=== PATIENT | female | born 1995 | race Caucasian/White ===

== ENCOUNTER → 2017-11-07 08:03 | Outpatient (CLI) | payer MEDICAID, SELFPAY ==
--- NOTE | 2017-11-07 08:05 | US_ITS ---
US OB transvaginal HISTORY: ITS.REASON: US OB TV -DATES ORDERING PHYSICIAN: Denis Miranda MD PATIENT AGE: 22 years COMPARISON: FINDINGS: An intrauterine gestational sac is present with a pole with a crown-rump length of 2.36 cm correlating to gestational age of 9w1d. heart tones are present with an FHR of 160 bpm's. Yolk sac is noted. The amnion and chorion have not yet fused. Adnexa: Unremarkable. IMPRESSION: Live intrauterine gestation at 9 weeks 1 days as described above. Estimated due date by ultrasound is 06/11/2018
== END ==
PROVIDERS: PCP Family Medicine; Visit Provider Nurse Practitioner Obstetrics & Gynecology
DX: O26.841 Uterine size-date discrepancy, first trimester (principal)
CPT/HCPCS: 76830

== ENCOUNTER → 2017-12-07 09:43 | Outpatient (CLI) | payer MEDICAID, SELFPAY ==
[2017-12-07 10:30] LABS: Basophils % 0.1 % (0.1-2.0); Eosinophils # 0.1 K/mm3 (0.0-0.4); Hematocrit 38.6 % (37.0-47.0); Hemoglobin 12.5 g/dL (12.2-16.2); Lymphocytes # 1.2 K/mm3 (0.7-4.5); Lymphocytes % 18.5 K/mm3 (10-50); Mean Corpuscular HGB Conc 32.3 g/dL (31.8-35.4); Mean Corpuscular Hemoglobin 26.9 pg (27.0-31.2); Mean Corpuscular Volume 83.4 fl (81-99); Mean Platelet Volume 7.9 fl (7.4-10.4); Monocytes # 0.3 K/mm3 (0.1-1.0); Monocytes % 5.1 % (1.7-9.3); Neutrophils % 75.3 % (37.0-80.0); Platelet Count 274 K/mm3 (142-424); Red Blood Count 4.63 M/mm3 (4.20-5.40); Red Cell Distribution Width 13.3 % (11.5-17.5); White Blood Count 6.7 K/mm3 (4.8-10.8)
[2017-12-08 08:28] LABS: HIV Screen 4th Generation wRfx Non Reactive (Non Reactive)
[2017-12-08 20:05] LABS: Rapid Plasma Reagin Ab Titer Non Reactive (NonRea<1:1)
[2017-12-08 20:06] LABS: Hepatitis B Surface Antigen Negative (Negative); Hepatitis C Antibody <0.1 s/co ratio (0.0-0.9); Rubella Antibodies, IgG 3.22 index (Immune >0.99)
== END ==
PROVIDERS: PCP Family Medicine; Visit Provider Nurse Practitioner Obstetrics & Gynecology
DX: Z34.90 Encounter for supervision of normal pregnancy, unspecified, unspecified trimester (principal)
CPT/HCPCS: 36415; 85025; 86592; 86703; 86762; 86850; 87340; 87380; G0432

== ENCOUNTER → 2018-01-30 13:10 | Outpatient (CLI) | payer MEDICAID, SELFPAY ==
--- NOTE | 2018-01-30 13:14 | US_ITS ---
US OB /maternal detail: INDICATION: ITS.REASON: US OB Complete ORDERING PHYSICIAN: Denis Miranda MD PATIENT AGE: 22 years TECHNIQUE: ultrasound transabdominal scanning. COMPARISON: No previous relevant studies. FINDINGS: Single viable intrauterine gestation. Breech position. Placenta: Posterior and fundal placenta grade 1. There is average amount fluid. The cervix appears satisfactory. Closed and measuring 3.5 cm in length. Complete survey performed and was unremarkable on the submitted images as in PACS. No discrete anomalies identified on survey imaging by technologist. Active fetus. Three-vessel cord with satisfactory umbilical cord insertion. 4- chamber heart noted. Survey of brain & ventricles unremarkable. Face and neck survey unremarkable. Diaphragm and chest views unremarkable. Abdomen: Both kidneys noted and unremarkable. Stomach noted and satisfactory. Spine: Survey of the spine satisfactory with no anomalies identified nor imaged. Both arms and legs noted. Amniotic Fluid: Adequate. Maternal adnexa: No significant findings. Measurements: Average ultrasound age 20w5d. Gestational Age 21w1d. Estimated due date by ultrasound age 1206/14/2018. Estimated weight 461 grams. BPD = 21w0d OFD = 21w5d HC = 20w4d AC = 21w0d FL = 20w0d Growth Percentile= 18% based on established due date of 06/11/2018 Heart Rate = 147 Cerebellum = 20w3d Humerus = 21w1d HC/AC is 1.15 (1.06-1.25). CI is 75% (70-86%). FL/BPD is 65%. FL/AC is 20 %(20-24%). IMPRESSION: There is a single live fetus in breech presentation at an average ultrasound age of 20 weeks and 5 days. heart and body motion noted. No anomalies apparent. Please see above for detail
== END ==
PROVIDERS: PCP Family Medicine; Visit Provider Nurse Practitioner Obstetrics & Gynecology
DX: Z36.0 Encounter for antenatal screening for chromosomal anomalies (principal)
CPT/HCPCS: 76811

== ENCOUNTER 2018-04-01 20:17 | Outpatient (CLI) | payer MEDICAID, SELFPAY ==
[2018-04-01 20:27] VITALS: BMI 31.4
[2018-04-01 20:33] LABS: Microscopic, Urine URINE MICROSCOPIC (MICROSCOPIC)
[2018-04-01 20:38] VITALS: BP 121/71; PULSE 95; RESP 18; TEMP 36.6; O2SAT 100
[2018-04-01 20:39] LABS: Appearance,Urine CLEAR (Clear); Bilirubin,Urine Negative (Negative); Blood, Urine Negative (Negative); Color,Urine YELLOW (Yellow); Glucose,Urine (UA) Negative (Negative); Ketones,Urine Negative (Negative); Leukocyte Esterase,Urine Negative (Negative); Nitrate,Urine Negative (Negative); Protein,Urine Negative (Negative); Specific Gravity, Urine <= 1.005 (1.005-1.030); Urobilinogen,Urine 0.2 EU/dl (0.2)
[2018-04-01 20:40] VITALS: BMI 31.4
== END 2018-04-01 21:11 | disposition home or self-care (01) ==
LOC: OBOUT 20:19 → OB 20:20
PROVIDERS: PCP Nurse Practitioner Obstetrics & Gynecology; Visit Provider Obstetrics & Gynecology
DX: O36.8130 Decreased fetal movements, third trimester, not applicable or unspecified (principal); Z3A.29 29 weeks gestation of pregnancy
CPT/HCPCS: 59025; 81001

== ENCOUNTER 2018-04-24 16:03 | Outpatient (CLI) | payer MEDICAID, SELFPAY ==
[2018-04-24 16:20] VITALS: BP 123/89; PULSE 101; RESP 18; TEMP 36.8; O2SAT 97
[2018-04-24 16:25] VITALS: BMI 31.6
[2018-04-24 16:51] VITALS: BP 123/89; PULSE 101; RESP 18; TEMP 36.8; O2SAT 97; BMI 31.6
[2018-04-24 16:58] LABS: Microscopic, Urine URINE MICROSCOPIC (MICROSCOPIC)
[2018-04-24 17:45] LABS: Fetal Fibronectin (Rapid) Negative (Negative)
[2018-04-24 17:51] LABS: Appearance,Urine SL CLOUDY (Clear); Bilirubin,Urine Negative (Negative); Blood, Urine Negative (Negative); Color,Urine YELLOW (Yellow); Glucose,Urine (UA) Negative (Negative); Ketones,Urine Negative (Negative); Leukocyte Esterase,Urine Negative (Negative); Nitrate,Urine Negative (Negative); PH,Urine 6.5 (5.0-8.5); Protein,Urine Negative (Negative); Specific Gravity, Urine 1.025 (1.005-1.030); Urobilinogen,Urine 0.2 EU/dl (0.2)
[2018-04-24 18:16] LABS: Bacteria,Urine Trace /lpf; Squamous Epithelial Cell,Urine Occasional #/hpf (0-5); WBC,Urine Occasional #/hpf (0-3)
[2018-04-24 18:30] VITALS: BP 123/83; PULSE 95; RESP 18; O2SAT 97
== END 2018-04-24 18:30 | disposition home or self-care (01) ==
LOC: OBOUT 16:08 → OB 16:09
PROVIDERS: PCP Family Medicine; Visit Provider Nurse Practitioner Obstetrics & Gynecology
DX: O26.893 Other specified pregnancy related conditions, third trimester (principal); Z3A.33 33 weeks gestation of pregnancy; R10.2 Pelvic and perineal pain
CPT/HCPCS: 59025; 81001; 82731; 94761

== ENCOUNTER → 2018-05-08 08:38 | Outpatient (CLI) | payer MEDICAID, SELFPAY ==
--- NOTE | 2018-05-08 08:39 | US_ITS ---
US OB biophysical profile, US OB follow up, US SD Ratio umbilcal artery: Indication: ITS.REASON: US OB BPP Growth- LGA ORDERING PHYSICIAN: Denis Miranda MD PATIENT AGE: 23 years COMPARISON: 01/30/2018 FINDINGS: There is a single live fetus present which is in the cephalic presentation. The sinus posterior lateral and grade 2. The following parameters are obtained: Average ultrasound age is 33w4d. Estimated due date by ultrasound is 06/22/2018. Estimated weight is 2207. This is 10%. BPD: 33w0d OFD: 35w0d HC: 33w5d AC: 33w1d FL: 34w3d heart rate: 143 bpm. HC/AC: 1.04 (0.93-1.11) Cephalic index: 75% (70-86%) FL/BPD: 81% (71-87%) FL/AC: 23% (20-24%) Amniotic fluid index: 11 cm Qualitative AFV: 2 breathing movements: 2 Gross body movements: 2 Tone: 2 Biophysical profile score: 8/8 Doppler evaluation of the umbilical artery: SD ratio: 3.8 Resistive index: 0.73 No obvious anomalies evident. Placenta: POST/LAT GR 2 Cervix: Appears closed and measures 3 cm IMPRESSION: There is a single fetus which is in cephalic presentation. Average ultrasound age is 33 weeks and 4 days with an estimated due date by ultrasound of 06/22/2018. Estimated weight is 2207 g which is 10 percentile indicating intrauterine growth restriction. Biophysical profile 8 of 8 with FLORECITA of 11 cm. SD ratio is greater than 95th percentile. Resistive index is slightly below 95th percentile. The placenta is posterior and right lateral and grade 2
== END ==
PROVIDERS: PCP Family Medicine; Visit Provider Nurse Practitioner Obstetrics & Gynecology
DX: O36.63X0 Maternal care for excessive fetal growth, third trimester, not applicable or unspecified (principal)
CPT/HCPCS: 76816; 76819; 76820

== ENCOUNTER → 2018-05-14 17:19 | Outpatient (CLI) | payer MEDICAID, SELFPAY | PROVIDERS: Visit Provider Nurse Practitioner Obstetrics & Gynecology | DX: Z34.90 Encounter for supervision of normal pregnancy, unspecified, unspecified trimester (principal) | CPT/HCPCS: 86403 ==

== ENCOUNTER 2018-05-21 05:07 | Inpatient (IN) ==
[2018-05-21 05:51] LABS: Basophils % 0.3 % (0.1-2.0); Eosinophils # 0.1 K/mm3 (0.0-0.4); Eosinophils % 1.7 % (0.1-12.0); Hematocrit 39.1 % (37.0-47.0); Hemoglobin 12.9 g/dL (12.2-16.2); Lymphocytes % 24.9 % (10-50); Mean Corpuscular HGB Conc 33.1 g/dL (31.8-35.4); Mean Corpuscular Hemoglobin 28.5 pg (27.0-31.2); Mean Corpuscular Volume 86.2 fl (81-99); Monocytes # 0.6 K/mm3 (0.1-1.0); Monocytes % 7.3 % (1.7-9.3); Neutrophils # 5.3 K/mm3 (1.8-7.8); Neutrophils % 65.9 % (37.0-80.0); Platelet Count 289 K/mm3 (142-424); Red Blood Count 4.54 M/mm3 (4.20-5.40); Red Cell Distribution Width 13.9 % (11.5-17.5); White Blood Count 8.1 K/mm3 (4.8-10.8)
[2018-05-21 07:59] VITALS: BP 144/77
--- NOTE | 2018-05-21 09:09 | Progress Note ---
Labor Note - Subjective: Date: 05/21/18 Time: 09:08 irregular contractions - Objective: NST:: Reactive Contractions:: every 4-5 minutes Cervical Dilation:: 2-3 Effacement:: 50% Station: -2 Membranes: artificially ruptured Comment:: I ruptured membranes and there was clear fluid. - Fetus: Monitoring?: Yes monitoring type:: Internal and External Comment:: I inserted an IUPC - Assessment: Labor progressing?: Yes Cephalopelvic disproportion?: No Patient Problems: All Active Problems Pharyngitis (Acute) IUGR (intrauterine growth restriction) (Acute) HGSIL on cytologic smear of cervix (Acute) (Acute) - Plan: Anesthesia for epidural?: Yes Continue to labor down?: Yes Plan for ?: No Continue to monitor?: Yes Start pushing?: No
--- NOTE | 2018-05-21 09:10 | History & Physical Report ---
OB - H&P: HPI Antepartum - History of Present Illness Chief complaint: Intrauterine growth restriction History of present illness: She is a 23-year-old 1 para 0 at 37 weeks gestational age. She has a baby that was 9th percentile. As result of that we have elected to deliver her at 37+ weeks. - History of Present Criteria for establishing EDC:: LMP confirmed by 1st trimester US care: good care Ultrasounds: normal 1st trimester US, normal mid trimester US Obstetrical complications: growth restriction Medical complications: none - Labs Blood type: B (+) positive Rubella: immune RPR/VDRL: nonreactive GBS status: positive HBsAG: negative [facility] History I have reviewed the patient's past medical history: Yes Medical History: Denies:: Anxiety, Depression, Diabetes Mellitus Type 1, Hyperlipidemia, Hypertension, Migraine, MRSA Other Surgeries: No: Amputation: No Fractures: No - *Social History Smoking Status: Never smoker Alcohol Intake: never Substance Use Type: denies use - Psychiatric History Pschychiatric History:: Denies:: Anxiety, Depression *Family Hx:: Diabetes, Cancer, Heart Attack, Stroke, Hypertension Para: 0 Review of Systems - Review of Systems Review of systems:: pertinent systems reviewed and negative unless documented below Meds Home Medications Medication Instructions Recorded Confirmed Type 1 tab PO HS 10/31/17 05/21/18 History vitamin,calcium,sayfjkbg-zgpx-ujrvh acid tablet RX: Ferrous Sulfate 325 mg PO DAILY 05/21/18 05/21/18 History RX: raNITIdine HCl [Ranitidine HCl] 150 mg PO BID 05/21/18 05/21/18 History Allergies Allergy/AdvReac Type Severity Reaction Status Date / Time No Known Allergies Allergy Verified 05/17/18 10:08 OB - H&P: Exam - Physical Exam Vital signs: Temp Pulse Resp BP 98.0 F 96 H 16 144/77 H 05/21/18 07:00 05/21/18 07:00 05/21/18 07:00 05/21/18 07:00 - Constitutional no acute distress - Routine HEENT Exam Head: Present: normocephalic Eye: Present: EOMI, PERRL ENT: Present: mucous membranes moist - Routine Neck Exam Present: supple, full ROM - Routine Respiratory Exam Absent: accessory muscle use (good air entry bilaterally), respiratory distress, wheezes, crackles - Routine Cardiovascular Exam Present: RRR. Absent: murmur - Routine Abdominal Exam Present: soft, normoactive bowel sounds. Absent: tenderness, distended, guarding - Routine Rectal Exam Patient deferred: visual exam, digital exam - Routine Exam Patient deferred: external exam, groin exam, perineal exam - Routine Extremities Exam Present: full ROM. Absent: cyanosis, edema - Routine Skin Exam Present: intact. Absent: cyanosis - Routine Neurological Exam Present: alert, oriented X3 - Routine Psychiatric Exam Present: normal affect OB - Results - Labs Labs: Short CBC 05/21/18 Range/Units 05:40 WBC 8.1 (4.8-10.8) K/mm3 Hgb 12.9 (12.2-16.2) g/dL Hct 39.1 (37.0-47.0) % Plt Count 289 (142-424) K/mm3 OB - A/P Antepartum (1) IUGR (intrauterine growth restriction) Current visit: No Status: Acute - Additional Plan Planning to breastfeed?: Yes Plan: induction Additional Information:: She is 37+ weeks gestational age with a small for gestational age . As a result of that we are delivering her at 37 weeks.
--- NOTE | 2018-05-21 11:19 | Progress Note ---
[facility] Anesthesia Checklist - Patient Identification Patient Identification: Arm Band, Verbal (Name & ) - Structural Data Admitted From: Home Planned Operative Procedure/s: Labor Epidural Consent for Planned Operative Procedure(s) Verified: Yes Verified Documents: Surgical Consent, History and Physical - Chart Verification Results Verified: CBC - Additional verifications Patient : Yes Anesthesia Reactions: No - Airway Assessment C-Spine Mobility Assessed: Yes TMJ Mobility Assessed: Yes Dentition: Good Dentition - Neurological Assessment Level of Consciousness: Awake Hx Seizures: No Numbness or tingling in extremities: No - Anesthesia Plan Anesthesia Risk discussed: Yes Anesthesia Plan: Verified ASA Class: II Anesthesia Type: Epidural [facility] History I have reviewed the patient's past medical history: Yes Medical History: Denies:: Anxiety, Depression, Diabetes Mellitus Type 1, Hyperlipidemia, Hypertension, Migraine, MRSA Other Surgeries: No: Amputation: No Fractures: No - *Social History Smoking Status: Never smoker Alcohol Intake: never Substance Use Type: denies use - Psychiatric History Pschychiatric History:: Denies:: Anxiety, Depression *Family Hx:: Diabetes, Cancer, Heart Attack, Stroke, Hypertension Para: 0
--- NOTE | 2018-05-21 11:44 | Progress Note ---
Labor Note - Subjective: Date: 05/21/18 Time: 11:43 regular contraction - Objective: NST:: Reactive Contractions:: every 2-3 minutes Cervical Dilation:: 3 Effacement:: 75% Station: -2 Membranes: artificially ruptured - Fetus: Monitoring?: Yes monitoring type:: Internal and External - Assessment: Labor progressing?: Yes Cephalopelvic disproportion?: No Patient Problems: All Active Problems Pharyngitis (Acute) IUGR (intrauterine growth restriction) (Acute) HGSIL on cytologic smear of cervix (Acute) (Acute) - Plan: Anesthesia for epidural?: Yes Continue to labor down?: Yes Plan for ?: No Continue to monitor?: Yes Start pushing?: No
--- NOTE | 2018-05-21 13:43 | Progress Note ---
Labor Note - Subjective: Date: 05/21/18 Time: 13:42 regular contraction - Objective: NST:: Reactive Contractions:: every 2-3 minutes Cervical Dilation:: 4 Effacement:: 75% Station: -2 Membranes: artificially ruptured - Fetus: Monitoring?: Yes monitoring type:: Internal and External - Assessment: Labor progressing?: Yes Cephalopelvic disproportion?: No Patient Problems: All Active Problems Pharyngitis (Acute) IUGR (intrauterine growth restriction) (Acute) HGSIL on cytologic smear of cervix (Acute) (Acute) - Plan: Anesthesia for epidural?: Yes Continue to labor down?: Yes Plan for ?: No Continue to monitor?: Yes Start pushing?: No
--- NOTE | 2018-05-21 16:19 | Progress Note ---
Labor Note - Subjective: Date: 05/21/18 Time: 16:18 regular contraction - Objective: NST:: Reactive Contractions:: every 2-3 minutes Cervical Dilation:: 4 Effacement:: 75% Station: -2 Membranes: artificially ruptured - Fetus: Monitoring?: Yes monitoring type:: Internal and External - Assessment: Labor progressing?: No Cephalopelvic disproportion?: No Patient Problems: All Active Problems Pharyngitis (Acute) IUGR (intrauterine growth restriction) (Acute) HGSIL on cytologic smear of cervix (Acute) (Acute) - Plan: Anesthesia for epidural?: Yes Continue to labor down?: Yes Plan for ?: Yes Continue to monitor?: Yes Start pushing?: No Additional information:: She really has not progressed in the last 2-1/2 hours. We will continue to observe her for the next couple of hours. If she does not change her cervix and we will go ahead with a section for pelvic disproportion and failure to progress.
--- NOTE | 2018-05-21 19:11 | Progress Note ---
Labor Note - Subjective: Date: 05/21/18 Time: 19:10 regular contraction - Objective: NST:: Reactive Contractions:: every 2-3 minutes Cervical Dilation:: 8 Effacement:: 100% Station: 0 Membranes: artificially ruptured - Fetus: Monitoring?: Yes monitoring type:: Internal and External - Assessment: Labor progressing?: Yes Cephalopelvic disproportion?: No Patient Problems: All Active Problems Pharyngitis (Acute) IUGR (intrauterine growth restriction) (Acute) HGSIL on cytologic smear of cervix (Acute) (Acute) - Plan: Anesthesia for epidural?: Yes Continue to labor down?: Yes Plan for ?: No Continue to monitor?: Yes Start pushing?: No Comment:: She has progressed significantly over the last few hours. She is 8 cm 100 percent effaced and station 0. We will continue on with labor
--- NOTE | 2018-05-21 20:36 | Procedure Note ---
- Delivery Note Delivery Date:: 05/21/18 Delivery Time:: 20:18 Anesthesia Type: Epidural Was labor medically induced?: Yes Induction method: per pitocin protocol Gestational age (weeks): 37 Infant delivered prior to 39 weeks?: Yes Justification for early elective delivery:: IUGR Infant Gender: Female at 1 minute: 8 at 5 minutes: 9 AF:: Clear fluid LAC or MLE?: LAC Delivery Procedure:: She is a 23-year-old 1 para 0 who is 37 weeks gestational age. She has been followed most over the last couple of weeks because she had a small for gestational age infant that measured at the 9th percentile. As result of that we elected to induce her labor at 37 weeks. She was started on IV oxytocin had her membranes ruptured. Under labor epidural she progressed to full dilation and delivered spontaneously a live born female child at 8:18 PM in the evening of May 21, 2018. On deliver the head the anterior godfrey delivered followed by the rest of the 's body atraumatically. The oropharynx and nasopharynx were bulb suctioned. The baby cried spontaneously. We allowed the cord to continue to pulsate for approximately 1 minute then doubly clamped and cut the cord. The baby was then placed on the mother's abdomen for further care. The nurse assigned Apgars of 8 at 1 minute and 9 at 5 minutes. We then obtained cord pH. There was not enough blood for cord blood. PH was 7.34. Using gentle traction on the cord countertraction the fundus I was able to easily deliver the placenta intact. It had a normal three-vessel cord. He had a small second degree perineal laceration was repaired with 3-0 Vicryl Rapide suture to the superficial tissues in 2-0 Vicryl suture to the deep tissues. She has B+ blood, she is rubella immune and was group B streptococcus positive. She did receive IV antibiotics while in labor. She plans to breast-feed. Her moth exterminator is Dr. Rodriguez. Estimated blood loss was approximately 400 cc. Laceration:: vaginal
[2018-05-22 06:11] LABS: Hematocrit 31.9 % (37.0-47.0); Hemoglobin 10.7 g/dL (12.2-16.2)
--- NOTE | 2018-05-22 08:23 | Progress Note ---
Internal Medicine - PN: Subj *Date: 05/22/18 *Time: 08:22 Interval history: She continues to do well. She is eating and drinking and ambulating. She is breast-feeding. Her lochia is normal. Exam Vital signs and Labs for Last 24 Hours: Temp Pulse Resp BP 98.0 F 96 H 16 144/77 H 05/21/18 07:00 05/21/18 07:00 05/21/18 07:00 05/21/18 07:00 Laboratory Results - last 24 hr 05/21/18 20:28: Cord ABG pH 7.34 L 05/22/18 05:57: Hgb 10.7 L, Hct 31.9 L I & O for Last 24 hours: Intake & Output 05/19/18 05/20/18 05/21/18 05/22/18 11:59 11:59 11:59 11:59 Weight 190 lb - Constitutional no acute distress Assessment and Plan (1) IUGR (intrauterine growth restriction) Current visit: No Status: Acute Category: Medical (2) Normal delivery at term Current visit: Yes Status: Acute Category: Medical Code(s): O80 - Encounter for full-term uncomplicated delivery - Assessment and plan all Dx Assessment and Plan for all problems:: She is doing well this morning. We will plan to send her home tomorrow.
--- NOTE | 2018-05-23 10:21 | Discharge Summary ---
General - General Admission date:: 05/21/18 Discharge date: 05/23/18 HPI HPI: She is a 23-year-old 1 now para 1 who is 37 weeks gestational age. She was followed with a small for gestational age and as a result of that was induced. Hospital Course Hospital Course: She was started on IV oxytocin and had her membranes ruptured. Under labor epidural she progressed to full dilation and delivered spontaneously a live born female child at 8:18 PM in the evening of May 21, 2018. The baby weighed 5 pounds 10 ounces and had Apgars of 8 at 1 minute and 9 at 5 minutes. PH was 7.34. She had a small second-degree perineal laceration. She has done well and has remained afebrile throughout her hospitalization. She is eating and drinking and ambulating. She is breast- feeding. She has, she is rubella immune and was group B streptococcus positive. She did receive IV antibiotic. She is discharged home to follow-up with me in approximately 2 weeks time. She will continue with her vitamins and iron. She was given the usual instructions with respect to limiting her activity, driving and sexual activity. Objective Vital signs: Temp Pulse Resp BP 98.0 F 96 H 16 144/77 H 05/21/18 07:00 05/21/18 07:00 05/21/18 07:00 05/21/18 07:00 no acute distress DS: Diagnosis - Discharge Diagnosis (1) IUGR (intrauterine growth restriction) Status: Acute (2) Normal delivery at term Status: Acute Discharge Plan - Patient Discharge Instructions ACTIVITY: No heavy lifting DIET: continue same diet Additional Instructions: No heavy lifting, no strenuous activity, nothing in the vagina for 6 weeks. Patient Instructions: Depression, Hemorrhage, Post Discharge Instructions - Follow up Plan Follow up with: Denis Miranda MD [Staff Physician] - 06/04/18 10:45 am Disposition: Home, Self-Custodial Medications: Home Medications Medication Instructions Recorded Confirmed Type 1 tab PO HS 10/31/17 05/21/18 History vitamin,calcium,dailnmhn-vyeq-tjwsv acid tablet Ferrous Sulfate 325 mg PO DAILY 05/21/18 05/21/18 History raNITIdine HCl [Ranitidine HCl] 150 mg PO BID 05/21/18 05/21/18 History Prescriptions/Medication Reconciliation: Continue vitamin,calcium,jwenifyc-gszo-ltgmt acid tablet 1 tab PO HS promethazine 12.5 mg tablet 12.5 mg PO Q6H PRN #14 tab PRN Reason: nausea and vomiting raNITIdine HCl [Ranitidine HCl] 150 mg PO BID Ferrous Sulfate 325 mg PO DAILY
== END 2018-05-23 11:55 | disposition home or self-care (01) ==
LOC: OB 05:07
PROVIDERS: ADMIT Nurse Practitioner Obstetrics & Gynecology; ATTEND Nurse Practitioner Obstetrics & Gynecology

== ENCOUNTER 2019-12-25 16:47 | Emergency (ER) | payer OTHER, SELFPAY ==
[2019-12-25 16:48] VITALS: BP 120/68; PULSE 93; RESP 18; TEMP 36.6; O2SAT 98; BMI 33.6
[2019-12-25 17:03] VITALS: BP 130/68; PULSE 95; RESP 17; O2SAT 98
--- NOTE | 2019-12-25 17:07 | CT_ITS ---
PROCEDURE: CT ABDOMEN PELVIS W CON CLINICAL INDICATION: abd pain Sharp mid abdominal pain COMPARISON: No exams were available for comparison TECHNIQUE: IV Contrast: 75ML OPTIRAY 350 Oral Contrast None Axial images obtained with sagittal and coronal reformats. All CT scans at the facility use one or more dose reduction, viz: automated exposure control, ma/kV adjustment per patient size (including targeted exams where dose is matched to indication, i.e. head), or iterative reconstruction technique. FINDINGS: LOWER THORAX: No acute finding ABDOMEN & PELVIS: The liver, spleen, pancreas, adrenal glands, and kidneys show no acute finding. No intestinal obstruction or free air. No evidence of appendicitis or diverticulitis. There is mild diffuse thickening of the mid and distal ileum with enhancement of the wall consistent with enteritis. Small amount fluid is present in the pelvis. No acute bony anomalies.. IMPRESSION: The findings are compatible with enteritis Dictated by: Mitchell Goyal MD 12/26/2019 08:51 Electronically signed by Mitchell Goyal MD in [place] 12/26/2019 08:51
[2019-12-25 17:11] LABS: Microscopic, Urine URINE MICROSCOPIC (MICROSCOPIC)
[2019-12-25 17:14] LABS: Appearance,Urine CLEAR (Clear); Bilirubin,Urine Negative (Negative); Blood, Urine Negative (Negative); Color,Urine YELLOW (Yellow); Glucose,Urine (UA) Negative (Negative); Ketones,Urine Negative (Negative); Leukocyte Esterase,Urine Negative (Negative); Nitrate,Urine Negative (Negative); Protein,Urine Negative (Negative); Specific Gravity, Urine >= 1.030 (1.005-1.030); Urobilinogen,Urine 0.2 EU/dl (0.2)
[2019-12-25 17:20] LABS: Basophils % 0.2 % (0.1-2.0); Eosinophils # 0.3 K/mm3 (0.0-0.4); Eosinophils % 1.6 % (0.1-12.0); Hematocrit 44.6 % (37.0-47.0); Hemoglobin 15.1 g/dL (12.2-16.2); Lymphocytes # 1.2 K/mm3 (0.7-4.5); Lymphocytes % 8.2 % (10-50); Mean Corpuscular Hemoglobin 27.1 pg (27.0-31.2); Mean Corpuscular Volume 79.9 fl (81-99); Mean Platelet Volume 8.1 fl (7.4-10.4); Monocytes # 0.6 K/mm3 (0.1-1.0); Monocytes % 4.2 % (1.7-9.3); Neutrophils % 85.7 % (37.0-80.0); Platelet Count 330 K/mm3 (142-424); Red Blood Count 5.58 M/mm3 (4.20-5.40); Red Cell Distribution Width 13.9 % (11.5-17.5); White Blood Count 15.1 K/mm3 (4.8-10.8)
[2019-12-25 17:23] LABS: Chloride 107 mmol/L (98-107); Sodium 137 mmol/L (136-145)
[2019-12-25 17:25] LABS: Amylase 66 U/L (30-110); Blood Urea Nitrogen 12 mg/dl (7-17); Creatinine Clearance Estimated 175 mL/min (50-200); Estimated Glomerular Filt Rate 104 ml/min (>60); GFR (African American) 125 ML/MIN (>60)
[2019-12-25 17:26] LABS: Alanine Aminotransferase 15 U/L (12-78); Albumin Level 4.5 g/dl (3.5-5.0); Albumin/Globulin Ratio 1.4 (1.1-1.8); Alkaline Phosphatase 119 U/L (38-126); Aspartate Amino Transferase 22 U/L (14-36); Bilirubin,Total 0.6 mg/dl (0.2-1.3); Calcium 9.3 mg/dl (8.4-10.2); Carbon Dioxide 25 mmol/L (22.0-30.0); Globulin 3.3 g/dL (1.3-3.2); Glucose 100 mg/dl (74-100); Lipase 47 U/L (23-300); Total Protein,Serum 7.8 g/dl (6.3-8.2)
[2019-12-25 17:41] LABS: Urine Pregnancy, HCG Qual. Negative (Negative)
[2019-12-25 17:44] LABS: Bacteria,Urine Trace /lpf; WBC,Urine Occasional #/hpf (0-3)
[2019-12-25 17:46] LABS: MANUAL DIFFERENTIAL MANUAL DIFFERENTIAL (MANUAL DIFF)
--- NOTE | 2019-12-25 18:49 | [facility].EDNVD ---
ED Disposition Clinical Impression: Abdominal pain Qualifiers: Abdominal location: upper abdomen, unspecified Qualified Code(s): R10.10 - Upper abdominal pain, unspecified Disposition: Home, Self-Care Condition on Discharge: Good Instructions: DI for Acute Abdomen Additional Instructions: fluids and call pcp in am for follow up and possible gb eval Referrals: Arturo Rodriguez MD [Primary Care Provider] - - Critical Care Critical Care Time: No Attestation: On 12/25/19, the high probability of a clinically significant, sudden or life threatening deterioration of the following system(s) required my full and direct attention, intervention and personal management. The time I documented below is in addition to time spent performing reported procedures but includes the following listed in this critical care notation. Medical Decision Making - Medical Records Medical records reviewed: Yes: I reviewed the patient's medical records. - Julio Inquiry Pt receiving controlled substance: No Vital Signs: 12/25/19 16:48 12/25/19 17:03 12/25/19 19:00 Temperature 98 F Temperature Source Oral Pulse Rate [Left Radial] 93 H 95 H 85 Respiratory Rate 18 17 17 Blood Pressure [Right Arm] 120/68 130/68 125/73 Blood Pressure Mean [Right Arm] 85 88 90 Blood Pressure Source [Right Arm] Automatic Cuff Automatic Cuff Blood Pressure Position [Right Arm] Sitting Supine Supine 02 Sat by Pulse Oximetry 98 98 98 Oxygen Delivery Method Room Air Room Air Room Air 12/25/19 19:30 12/25/19 20:00 Temperature Temperature Source Pulse Rate [Left Radial] 82 95 H Respiratory Rate 17 18 Blood Pressure [Right Arm] 130/74 128/78 Blood Pressure Mean [Right Arm] 92 94 Blood Pressure Source [Right Arm] Automatic Cuff Automatic Cuff Blood Pressure Position [Right Arm] Supine Supine 02 Sat by Pulse Oximetry 99 100 Oxygen Delivery Method Room Air Room Air - Lab Data Lab results reviewed: Yes: I reviewed the patient's lab results. Lab Results 12/25/19 17:00: Urine Color Yellow, Urine Appearance Clear, Urine pH 6.0, Ur Specific [place] >= 1.030, Urine Protein Negative, Urine Glucose (UA) Negative, Urine Ketones Negative, Urine Blood Negative, Urine Nitrate Negative, Urine Bilirubin Negative, Urine Urobilinogen 0.2, Ur Leukocyte Esterase Negative, Urine WBC Occasional, Ur Squamous Epith Cells 5-10, Urine Bacteria Trace 12/25/19 17:00: Urine HCG, Qual Negative 12/25/19 17:10: WBC 15.1 H, RBC 5.58 H, Hgb 15.1, Hct 44.6, MCV 79.9 L, MCH 27.1, MCHC 34.0, RDW 13.9, Plt Count 330, MPV 8.1, Neut % (Auto) 85.7 H, Lymph % (Auto) 8.2 L, Bland % (Auto) 4.2, Eos % (Auto) 1.6, Baso % (Auto) 0.2, Neut # (Auto) 13.0 H, Lymph # (Auto) 1.2, Bland # (Auto) 0.6, Eos # (Auto) 0.3, Baso # (Auto) 0.0, Total Counted 100, Neutrophils % (Manual) 84 H, Lymphocytes % (Manual) 9 L, Monocytes % (Manual) 3, Eosinophils % (Manual) 4 H, Platelet Estimate Normal, Anisocytosis 1+, Microcytosis 1+ 12/25/19 17:10: Sodium 137, Potassium 4.0, Chloride 107, Carbon Dioxide 25, Anion Gap 9.0, BUN 12, Creatinine 0.70, Estimated Creat Clear 175, Estimated GFR 104, Est GFR ( Amer) 125, Glucose 100, Calcium 9.3, Total Bilirubin 0.6, AST 22, ALT 15, Alkaline Phosphatase 119, Total Protein 7.8, Albumin 4.5, Globulin 3.3 H, Albumin/Globulin Ratio 1.4, Amylase 66, Lipase 47 Result diagrams: 12/25/19 17:10 12/25/19 17:10 Orders (Tests/Meds): ED MEDICATIONS Generic Name Dose Route Start Last Admin Trade Name Freq PRN Reason Stop Dose Admin Sodium Chloride 1,000 mls @ 999 mls/hr 12/25/19 17:15 12/25/19 17:19 Sod Chlor 0.9% 1000ml Bag IV 12/25/19 18:15 999 mls/hr .Q1H1M MG Administration Discontinued Medications Generic Name Dose Route Start Last Admin Trade Name Freq PRN Reason Stop Dose Admin Ioversol 75 ml 12/25/19 18:04 12/25/19 18:05 Rad-Optiray 350 100ml Vial IV 12/25/19 18:05 75 ml ONCE ONE Administration Protocol Morphine Sulfate 4 mg 0
[2019-12-25 19:00] VITALS: BP 125/73; PULSE 85; RESP 17; O2SAT 98
[2019-12-25 19:22] LABS: Anisocytosis 1+; Eosinophils % 4 % (0-3); Lymphocytes % 9 % (10-50); Microcytosis 1+; Monocytes % 3 % (2-9); Neutrophils % 84 % (42-76); Platelet Estimate Normal; Total Cells Counted 100
[2019-12-25 19:30] VITALS: BP 130/74; PULSE 82; RESP 17; O2SAT 99
[2019-12-25 20:00] VITALS: BP 128/78; PULSE 95; RESP 18; O2SAT 100
[2019-12-25 20:20] VITALS: BP 111/76; PULSE 77; RESP 16; TEMP 36.8; O2SAT 98
== END 2019-12-25 20:22 | disposition home or self-care (01) ==
PROVIDERS: Emergency Provider Emergency Medicine; PCP Family Medicine
DX: R10.10 Upper abdominal pain, unspecified (principal); R11.0 Nausea
CPT/HCPCS: 74177; 80053; 81001; 81025; 82150; 83690; 85007; 85025; 96365; 96375; 99284; J2405; Q9967

== ENCOUNTER → 2020-05-15 10:17 | Outpatient (CLI) | payer OTHER, SELFPAY ==
--- NOTE | 2020-05-15 10:20 | CT_ITS ---
PROCEDURE: CT ABDOMEN PELVIS W CON CLINICAL INDICATION: ABD PAIN, DIARRHEA COMPARISON: CT CT ABDOMEN PELVIS W CON from 12/25/2019 TECHNIQUE: IV Contrast: 75ML OPTIRAY 350 Oral Contrast none given Axial images obtained with sagittal and coronal reformats. All CT scans at the facility use one or more dose reduction, viz: automated exposure control, ma/kV adjustment per patient size (including targeted exams where dose is matched to indication, i.e. head), or iterative reconstruction technique. FINDINGS: Lower thorax: There is a calcified granuloma right middle lobe the lower lung ortiz are clear, there is no pleural fluid. ABDOMEN: Liver: No masses or biliary dilatation. Gallbladder: Nondistended. No radio opaque stones. Pancreas: No masses or peripancreatic fluid collections. Spleen: unremarkable Adrenals: unremarkable Kidneys/ureters: The kidneys are normal in size and show symmetrical function both appearing normal. ABDOMEN & PELVIS: Stomach bowel: The stomach duodenal sweep and small bowel appear normal. The appendix is normal. Peritoneum: No abnormal fluid collections. No obvious inflammatory changes. No free air. Lymph nodes: No enlarged lymph nodes apparent. Vasculature: No evidence of abdominal aortic aneurysm. No retroperitoneal hemorrhage evident. Bones: No acute fracture PELVIS: Reproductive: The uterus is normal in size and in the midline and somewhat anteverted. Bladder: The urinary bladder is moderately distended with urine appears normal, there is no free fluid in the pelvis. Appendix: Unremarkable. No distention or periappendiceal phlegmonous change. IMPRESSION: Essentially unremarkable study no acute abdominal or pelvic pathology identified Dictated by: Dr. Aaron Baird MD 05/15/2020 11:04 Dr. Aaron Baird MD in [place] 05/15/2020 11:04
== END ==
PROVIDERS: PCP Family Medicine; Visit Provider Nurse Practitioner
DX: R10.9 Unspecified abdominal pain (principal); R19.7 Diarrhea, unspecified
CPT/HCPCS: 74177; Q9967

== ENCOUNTER 2020-05-26 16:57 | Emergency (ER) | payer OTHER, SELFPAY ==
[2020-05-26 17:06] VITALS: BP 125/77; PULSE 77; RESP 16; TEMP 36.7; O2SAT 98; BMI 28.2
[2020-05-26 17:51] VITALS: BP 125/77; PULSE 77; RESP 16; TEMP 36.7; O2SAT 98; BMI 28.1
--- NOTE | 2020-05-26 18:00 | HMH.EDUTC ---
[facility] Disposition Clinical Impression: Conjunctivitis Qualifiers: Conjunctivitis type: unspecified Laterality: right Qualified Code(s): H10.9 - Unspecified conjunctivitis Disposition: Home, Self-Care Condition on Discharge: Good Instructions: Conjunctivitis, DI for Conjunctivitis, How to Instill Eye Drops Additional Instructions: Make sure to wash hands well before and after application *Use drops as prescribed *Follow up with [facility] if no improvement or any worsening of symptoms or your Eye doctor Return if needed Straight to ER if any life threatening symptoms Follow up with Family Doctor if no improvement or any worsening of symptoms Prescriptions: Niels/Polymyx B Sulf/Dexameth [Maxitrol Ophth Susp 5mL Bottle] 1 drops EYE-RIGHT QID 4 Days #1 drops.susp Transmission Status: Pending to [id number] Referrals: Arturo Rodriguez MD [Primary Care Provider] - As needed Dr Presley [Other] Time of Disposition: 18:18 Medical Decision Making - Julio Inquiry Pt receiving controlled substance: No Julio was queried for this patient: No Vital Signs: 05/26/20 17:06 05/26/20 17:51 Temperature 98.0 F 98.0 F Temperature Source Oral Oral Pulse Rate [Right] 77 77 Respiratory Rate 16 16 Blood Pressure [Right Arm] 125/77 125/77 Blood Pressure Mean [Right Arm] 93 93 Blood Pressure Source [Right Arm] Automatic Cuff Automatic Cuff Blood Pressure Position [Right Arm] Sitting Sitting 02 Sat by Pulse Oximetry 98 98 Oxygen Delivery Method Room Air Room Air [facility] HPI - General Stated complaint: swollen/irritated R eye Time Seen by Provider: 05/26/20 18:00 Mode of Arrival: Ambulatory Source of Information: Patient Limitations: No Limitations Description of Symptoms (Recalled from Triage Doc. by RN): Pt c/o eyes swelling and itchy HEENT Symptoms (Recalled from RN notes): Yes Resp Symptoms (Recalled from RN notes): No Skin Symptoms (Recalled from RN notes): No MS Symptoms (Recalled from RN notes): No Functional Status (Recalled from RN notes): wnl - History of Present Illness Provider Complaint: Patient states that she was at work last night and her eyes was itchy like feeling and she rubbed them State that when she woke up today her right eye was swollen and had drainage and felt swollen and irritated Denies known injury denies FB so she came in to get checked - Related Data Home Medications Medication Instructions Recorded Confirmed Norethindrone 0.35 mg PO DAILY 08/26/18 03/10/20 nitrofurantoin PO 03/10/20 03/10/20 monohydrate/macrocrystals 100 mg capsule Previous Rx's Medication Instructions Recorded Niels/Polymyx B Sulf/Dexameth 1 drops EYE-RIGHT QID 4 Days #1 05/26/20 [Maxitrol Ophth Susp 5mL Bottle] drops.susp Allergies Allergy/AdvReac Type Severity Reaction Status Date / Time No Known Allergies Allergy Verified 03/10/20 09:35 - Worker's Comp Is this a Worker's Comp case?: No [facility] [place] History - Hepatitis A Screen Drug use history?: No High risk sexual behaviors?: No History of sexually transmitted infection?: No Currently employed?: No Childcare worker?: No Do you have indoor plumbing?: Yes Do you have electricity?: Yes Attestation statement:: This patient has been screened for Hepatitis A risk factors. I have reviewed the patient's past medical history: Yes Medical History: Denies:: Anxiety, Cancer, Depression, Diabetes Mellitus Type 1, Diabetes Mellitus Type 2, Hyperlipidemia, Hypertension, Migraine, MRSA, Seizures Other Surgeries: Yes: No Previous Surgery. No: Amputation: No Fractures: No - Social History Smoking Status: Current some day smoker (Vaps) Alcohol Intake: never Substance Use Type: denies use Occupational Status: employed Housing: other Household Members: other - Psychiatric History Pschychiatric History:: Denies:: Anxiety, Depression Family Hx:: Diabetes, Cancer, Heart Attack, Stroke, Hypertension Comment: Mother Diabetic and G
[2020-05-26 18:30] VITALS: BP 125/77; PULSE 77; RESP 16; TEMP 36.7; O2SAT 98
== END 2020-05-26 18:32 | disposition home or self-care (01) ==
PROVIDERS: Emergency Provider Nurse Practitioner; PCP Family Medicine
DX: H10.31 Unspecified acute conjunctivitis, right eye (principal); F17.290 Nicotine dependence, other tobacco product, uncomplicated
CPT/HCPCS: 99201

== ENCOUNTER 2021-02-28 16:48 | Emergency (ER) | payer OTHER, SELFPAY ==
[2021-02-28 16:54] VITALS: PULSE 89; RESP 14; TEMP 36.9; O2SAT 100; BMI 32.1
[2021-02-28 17:13] VITALS: BP 122/79; PULSE 89; RESP 16; TEMP 36.9
--- NOTE | 2021-02-28 17:27 | HMH.EDUTC ---
[facility] Disposition Clinical Impression: Left otitis media, Exposure to COVID-19 virus Disposition: Home, Self-Care Condition on Discharge: Good Instructions: Preventing the Spread of Coronavirus Discharge Instructions Prescriptions: Amoxicillin [Amoxicillin 875MG Tab] 875 mg PO Q12H #20 tab Transmission Status: Pending to [facility] Brompheniramine/Pseudoephed/Dm [Bromfed DM Cough Syrup 5mL] 5 - 10 ml PO Q4HP PRN 10 Days #240 ml PRN Reason: Cough Transmission Status: Pending to [facility] Referrals: Arturo Rodriguez MD [Primary Care Provider] - Time of Disposition: 17:37 Medical Decision Making - Julio Inquiry Pt receiving controlled substance: No Vital Signs: 02/28/21 16:54 02/28/21 17:13 Temperature 98.4 F 98.4 F Temperature Source Oral Pulse Rate 89 Pulse Rate [Left] 89 Respiratory Rate 14 16 Blood Pressure 122/79 02 Sat by Pulse Oximetry 100 Orders (Tests/Meds): ORDERS Category Date Time Status Covid-19 Nasal PCR ([facility]) Routine Lab 02/28/21 15:10 Received [facility] HPI - General Stated complaint: covid test Time Seen by Provider: 02/28/21 17:27 Mode of Arrival: Ambulatory Source of Information: Patient Limitations: No Limitations Description of Symptoms (Recalled from Triage Doc. by RN): exposed to covid positive boss YESTERDAY. pt c/o DAVIDSON, sore throat and congestion HEENT Symptoms (Recalled from RN notes): Yes (DAVIDSON sore throat and congestion) Resp Symptoms (Recalled from RN notes): No Skin Symptoms (Recalled from RN notes): No MS Symptoms (Recalled from RN notes): No Functional Status (Recalled from RN notes): na - History of Present Illness Provider Complaint: Left ear pain, headache, sore throat, cough X 3 days. Found out today that odilia has COVID. Onset (ago): day(s) (3) Relieving factors: none Exacerbating factors: none Associated symptoms: denies other symptoms Treatments prior to arrival: none - Related Data Home Medications Medication Instructions Recorded Confirmed Norethindrone 0.35 mg PO DAILY 08/26/18 03/10/20 nitrofurantoin PO 03/10/20 03/10/20 monohydrate/macrocrystals 100 mg capsule Previous Rx's Medication Instructions Recorded Niels/Polymyx B Sulf/Dexameth 1 drops EYE-RIGHT QID 4 Days #1 05/26/20 [Maxitrol Ophth Susp 5mL Bottle] drops.susp Amoxicillin [Amoxicillin 875MG 875 mg PO Q12H #20 tab 02/28/21 Tab] Brompheniramine/Pseudoephed/Dm 5 - 10 ml PO Q4HP PRN 10 Days #240 02/28/21 [Bromfed DM Cough Syrup 5mL] ml Allergies Allergy/AdvReac Type Severity Reaction Status Date / Time No Known Allergies Allergy Verified 03/10/20 09:35 - Worker's Comp Is this a Worker's Comp case?: No [facility] History - Hepatitis A Screen Drug use history?: No High risk sexual behaviors?: No History of sexually transmitted infection?: No Currently employed?: No Childcare worker?: No Do you have indoor plumbing?: Yes Do you have electricity?: Yes Attestation statement:: This patient has been screened for Hepatitis A risk factors. I have reviewed the patient's past medical history: Yes Medical History: Denies:: Anxiety, Cancer, Depression, Diabetes Mellitus Type 1, Diabetes Mellitus Type 2, Hyperlipidemia, Hypertension, Migraine, MRSA, Seizures Other Surgeries: Yes: No Previous Surgery. No: Amputation: No Fractures: No - Social History Smoking Status: Current some day smoker (Vaps) Alcohol Intake: never Substance Use Type: denies use Occupational Status: employed Housing: other Household Members: other - Psychiatric History Pschychiatric History:: Denies:: Anxiety, Depression Family Hx:: Diabetes, Cancer, Heart Attack, Stroke, Hypertension Comment: Mother Diabetic and Grandmother SLOT TECHNICIAN history: No SLOT TECHNICIAN history ROS Obtained: Yes All systems reviewed & no additional complaints - ENT Ears, Nose, Mouth, and Throat: Reports otalgia, Reports nasal congestion, Reports nasal discharge, Reports sore th
== END 2021-02-28 18:17 | disposition home or self-care (01) ==
PROVIDERS: Emergency Provider Physician Assistant; PCP Family Medicine
DX: H66.92 Otitis media, unspecified, left ear (principal); Z20.822 Contact with and (suspected) exposure to COVID-19; F41.8 Other specified anxiety disorders; F17.290 Nicotine dependence, other tobacco product, uncomplicated
CPT/HCPCS: 99202; C9803; G0463; U0003; U0005

== ENCOUNTER 2021-04-07 09:57 | Emergency (ER) | payer OTHER, SELFPAY ==
[2021-04-07 09:58] VITALS: BP 132/83; PULSE 82; RESP 16; TEMP 36.6; O2SAT 98; BMI 34.3
--- NOTE | 2021-04-07 10:51 | US_ITS ---
PROCEDURE: US OB <= 14 WEEKS FETUS CLINICAL INDICATION: bloody BM, concern for vaginal bleeding/preg compl COMPARISON: US OBBIO US OB biophysical profile from 05/08/2018 FINDINGS: An intrauterine gestational sac is present with a pole with a crown-rump length of 3.45cm correlating to gestational age of 10weeks 3days. heart tones are not identified. Small left corpus luteum cyst at 17 mm. IMPRESSION: Nonviable intrauterine gestation. Dictated by: Mitchell Goyal MD 04/07/2021 12:21 Mitchell Goyal MD in [place] 04/07/2021 12:21
[2021-04-07 11:15] VITALS: BP 132/70; PULSE 70; RESP 16; O2SAT 99
[2021-04-07 11:21] LABS: Basophils % 0.3 % (0.1-2.0); Eosinophils # 0.2 K/mm3 (0.0-0.4); Eosinophils % 2.2 % (0.1-12.0); Hematocrit 42.2 % (37.0-47.0); Hemoglobin 13.7 g/dL (12.2-16.2); Lymphocytes # 1.8 K/mm3 (0.7-4.5); Lymphocytes % 27.6 % (10-50); Mean Corpuscular HGB Conc 32.4 g/dL (31.8-35.4); Mean Corpuscular Hemoglobin 27.5 pg (27.0-31.2); Mean Corpuscular Volume 85.1 fl (81-99); Mean Platelet Volume 7.8 fl (7.4-10.4); Monocytes # 0.3 K/mm3 (0.1-1.0); Monocytes % 5.2 % (1.7-9.3); Neutrophils # 4.2 K/mm3 (1.8-7.8); Neutrophils % 64.6 % (37.0-80.0); Platelet Count 292 K/mm3 (142-424); Red Blood Count 4.96 M/mm3 (4.20-5.40); Red Cell Distribution Width 13.3 % (11.5-17.5); White Blood Count 6.5 K/mm3 (4.8-10.8)
[2021-04-07 11:31] LABS: Chloride 107 mmol/L (98-107)
[2021-04-07 11:32] LABS: Potassium 3.8 mmoL/L (3.5-5.1); Sodium 138 mmol/L (136-145)
[2021-04-07 11:34] LABS: Alanine Aminotransferase 20 U/L (12-78); Aspartate Amino Transferase 23 U/L (14-36); Blood Urea Nitrogen 5 mg/dl (7-17); Creatinine Clearance Estimated 246 mL/min (50-200); Estimated Glomerular Filt Rate 150 ml/min (>60); GFR (African American) 182 ML/MIN (>60)
[2021-04-07 11:35] LABS: Albumin Level 3.7 g/dl (3.5-5.0); Albumin/Globulin Ratio 1.1 (1.1-1.8); Alkaline Phosphatase 94 U/L (38-126); Anion Gap 12.8 mEq/L (5-15); Calcium 8.9 mg/dl (8.4-10.2); Carbon Dioxide 22 mmol/L (22.0-30.0); Globulin 3.4 g/dL (1.3-3.2); Glucose 94 mg/dl (74-100); Total Protein,Serum 7.1 g/dl (6.3-8.2)
[2021-04-07 11:36] LABS: Bilirubin,Total < 0.1 mg/dl (0.2-1.3)
[2021-04-07 12:11] LABS: Microscopic, Urine URINE MICROSCOPIC (MICROSCOPIC)
[2021-04-07 12:17] LABS: Appearance,Urine CLEAR (Clear); Bilirubin,Urine Negative (Negative); Blood, Urine Negative (Negative); Color,Urine YELLOW (Yellow); Glucose,Urine (UA) Negative (Negative); Ketones,Urine Negative (Negative); Leukocyte Esterase,Urine Negative (Negative); Nitrate,Urine Negative (Negative); Protein,Urine Negative (Negative); Urobilinogen,Urine 0.2 EU/dl (0.2)
--- NOTE | 2021-04-07 12:55 | HMH.EDGENADL ---
ED Disposition Clinical Impression: Miscarriage Disposition: Home, Self-Care Condition on Discharge: Good Additional Instructions: You were evaluated emergency department today for constipation as well as blood associated with bowel movement, and there is no need for further emergent evaluation at this time. Use MiraLAX as directed. Follow-up as directed with your netbackup administrator Dr. Ballard in the next 1 to 2 days for monitoring of any persistent symptoms and coordination of ongoing care needs. As you likely are experiencing miscarriage. Return to the emergency department without hesitation with any new or worsening symptoms. Referrals: Arturo Rodriguez MD [Primary Care Provider] - Celio Miranda [Referring] - Denis Miranda MD [Staff Physician] - 3 days (Miscarriage, follow-up in 1 to 2 days for reevaluation and coordination of ongoing care needs.) - Critical Care Critical Care Time: No Attestation: On 04/07/21, the high probability of a clinically significant, sudden or life threatening deterioration of the following system(s) required my full and direct attention, intervention and personal management. The time I documented below is in addition to time spent performing reported procedures but includes the following listed in this critical care notation. Medical Decision Making - Julio Inquiry Pt receiving controlled substance: No - Lab Data Lab Results 04/07/21 11:05: WBC 6.5, RBC 4.96, Hgb 13.7, Hct 42.2, MCV 85.1, MCH 27.5, MCHC 32.4, RDW 13.3, Plt Count 292, MPV 7.8, Neut % (Auto) 64.6, Lymph % (Auto) 27.6, Day % (Auto) 5.2, Eos % (Auto) 2.2, Baso % (Auto) 0.3, Neut # (Auto) 4.2, Lymph # (Auto) 1.8, Day # (Auto) 0.3, Eos # (Auto) 0.2, Baso # (Auto) 0.0 04/07/21 11:05: Sodium 138, Potassium 3.8, Chloride 107, Carbon Dioxide 22, Anion Gap 12.8, BUN 5 L, Creatinine 0.50 L, Estimated Creat Clear 246, Estimated GFR 150, Est GFR ( Amer) 182, Glucose 94, Calcium 8.9, Total Bilirubin < 0.1 L, AST 23, ALT 20, Alkaline Phosphatase 94, Total Protein 7.1, Albumin 3.7, Globulin 3.4 H, Albumin/Globulin Ratio 1.1 04/07/21 11:05: HCG, Quant [id number] H 04/07/21 12:08: Urine Color Yellow, Urine Appearance Clear, Urine pH 6.0, Ur Specific Hawthorn 1.020, Urine Protein Negative, Urine Glucose (UA) Negative, Urine Ketones Negative, Urine Blood Negative, Urine Nitrate Negative, Urine Bilirubin Negative, Urine Urobilinogen 0.2, Ur Leukocyte Esterase Negative, Urine RBC 3-5, Ur Squamous Epith Cells 3-5 Result diagrams: 04/07/21 11:05 04/07/21 11:05 Orders (Tests/Meds): ORDERS Category Date Time Status ABO/RH Type Stat BBK 04/07/21 12:25 Received Medical Decision Narrative: Patient is a 26-year-old female presenting for evaluation of constipation and bloody bowel movement, 11 weeks . She is in no acute distress, afebrile and hemodynamically stable, nontoxic in appearance. Physical exam demonstrates comfortable appearing female without abdominal tenderness, normal cardiopulmonary exam, soft nontender abdomen, normal external genitourinary exam with remainder physical exam within normal notes. Differential diagnosis includes but is not limited to internal hemorrhoid, lower GI bleed, vaginal bleeding, miscarriage. Will obtain basic laboratory analysis, transvaginal ultrasound and reassess clinically. Reassessment: Patient continues to be in no acute distress and hemodynamically stable. Laboratory analysis unremarkable, transvaginal ultrasound demonstrates intrauterine tissue without heart tones consistent with miscarriage. Care of the patient was discussed with her netbackup administrator. Plan to discharge the patient with follow-up in the next 1 to 2 days at their office for recheck and coordination of ongoing care needs. Patient communicated their understanding of discharge plan, all her questions were answered, and she is comfortable with the disposition. General Adult HPI - General Stated complaint: 11 weeks pr
--- NOTE | 2021-04-07 13:02 | PC.NURSE ---
Attempting to contact Dr. Miranda at this time.
--- NOTE | 2021-04-07 13:02 | PC.NURSE ---
Pt boyfriend at the bedside.
--- NOTE | 2021-04-07 13:24 | PC.NURSE ---
spoke with Dr. Miranda who advised he wanted to take the pt to the OR to complete a D/C. Called and spoke with Dia. She advised she would send someone down to bring pt to pre-op. LEON Morales and stephen Pittmanub tech came and took pt to pre-op at this time.
[2021-04-07 13:49] VITALS: BP 128/74; PULSE 74; RESP 16; TEMP 36.8; O2SAT 98
--- NOTE | 2021-04-07 14:08 | SUR.PREOP ---
Procedure cancelled for today per agreement with patient and Dr Miranda. Pt to follow up with Dr Miranda's office in the morning.
== END 2021-04-07 13:54 | disposition still patient (30) ==
PROVIDERS: Nurse Practitioner Obstetrics & Gynecology; Emergency Provider Student in an Organized Health Care Education/Training Program; PCP Family Medicine
DX: O03.9 Complete or unspecified spontaneous abortion without complication (principal); Z3A.11 11 weeks gestation of pregnancy
CPT/HCPCS: 36415; 76801; 80053; 81001; 84702; 85025; 86900; 86901; 99284

== ENCOUNTER → 2021-04-07 13:34 | Day surgery (SDC) | payer OTHER, SELFPAY | PROVIDERS: PCP Nurse Practitioner Obstetrics & Gynecology; Visit Provider Nurse Practitioner Obstetrics & Gynecology | DX: Z53.09 Procedure and treatment not carried out because of other contraindication (principal) ==

== ENCOUNTER → 2021-07-05 13:01 | Outpatient (CLI) | payer OTHER, SELFPAY | PROVIDERS: PCP Family Medicine; Visit Provider Nurse Practitioner | DX: Z20.822 Contact with and (suspected) exposure to COVID-19 (principal) | CPT/HCPCS: C9803; U0003; U0005 ==

== ENCOUNTER 2022-05-23 17:18 | Emergency (ER) | payer OTHER, SELFPAY ==
--- NOTE | 2022-05-23 18:38 | PC.NURSE ---
contacted registration to room pt in ER, registration staff states pt went upstairs to OB to pump states pt hasn't come back down yet. Asked registration to notify ER when pt is back so we can room pt.
[2022-05-23 18:40] VITALS: BP 126/78; PULSE 96; RESP 16; TEMP 36.7; O2SAT 96; BMI 37.8
--- NOTE | 2022-05-23 19:37 | PC.NURSE ---
shift change report given to deepthirn
--- NOTE | 2022-05-23 19:45 | PC.NURSE ---
notified ER pt is r/t pt is ordered lovenox, brusher operator paging patient relations representative ob to discuss treatment options
[2022-05-23 20:05] VITALS: BP 119/81; PULSE 89; RESP 16; TEMP 36.7; O2SAT 96
--- NOTE | 2022-05-29 14:48 | HMH.EDEXTP ---
Discharge Plan Disposition Patient Disposition: Home, Self-Care Condition: Good Prescriptions Prescriptions: No Action PNV cmb#95-ferrous fumarate-FA 1 EACH tablet 1 each PO DAILY omeprazole 20 MG tablet,disintegrat, delay rel 20 mg PO DAILY famotidine 20 MG tablet 20 mg PO DAILY Referrals Follow up/Referrals: Fang Hartmann MD [Primary Care Provider] - See instructions Activity Restrictions/Add. Instructions Additional Instructions/Restrictions: Please come back to emergency department first thing tomorrow morning to have your US performed. You have been given Lovenox one time dose tonight in ED. If your US is positive you may require being on Lovenox longer term. Please return if difficulty breathing, chest pain or any other concerns. . Clinical Impressions Clinical Impression: Limb swelling Instructions Patient Instructions: DI for Deep Vein Thrombosis Discharge ED Provider: Elizabeth Yo Extremity Problem HPI General Chief complaint: Extremity Problem,Nontraumatic Stated complaint: 05/17 , right leg swelling Time Seen by Provider: 05/23/22 17:20 Mode of Arrival: Ambulatory Source of Information: Patient Limitations: No Limitations Description of Symptoms (Recalled from ER Triage Doc. by RN): Pt reports R leg swelling, pt reports has had leighton swelling since having her child on 05/17. States woke up this morning with increased R leg swelling. Pt reports L leg now not swollen upon waking up this morning. Pt reports called her facing grinder today who told pt to come to the ER for evaluation. History of Present Illness HPI Narrative: Miss Centeno is a 27 yo female post 05/17 presenting to the ED for (R) leg swelling. Patient reports bilateral leg swelling since delivering her child, however she woke yesterday morning with increased (R) leg swelling and pain. Patient reports she did recently injure her (R) leg a week ago while working out at the gym. She denies any chest pain, dyspnea or other concerns. Patient denies hx of blood clots. No blood thinners. Denies any eyrthema. No fevers, N/V or other systemic signs of infection. Complaint: extremity pain and extremity swelling Onset (ago): day(s) Consistency: constant Location: right Severity scale (1-10): 3 Quality: aching Radiation: none Relieving factors: nothing Exacerbating factors: nothing Associated symptoms: denies other symptoms Related Data Home Medications Medication Instructions Recorded Confirmed famotidine 20 mg tablet 20 mg PO DAILY GERD 04/07/21 omeprazole 20 mg delayed 20 mg PO DAILY GERD 04/07/21 04/07/21 release,disintegrating tablet vit no.95-ferrous 1 each PO DAILY Supplement 04/07/21 04/07/21 fumarate 28 mg-folic acid 800 mcg tablet Allergies Allergy/AdvReac Type Severity Reaction Status Date / Time No Known Allergies Allergy Verified 03/10/20 09:35 [facility] Disclaimer: The information contained in this section may have been updated after the patient was seen, as this information can be updated by other users. Social History Smoking Status: Never smoker alcohol intake: never substance use type: denies use current occupational status: employed Travel in the last 8 weeks: None household members: other housing: other ROS Obtained: Yes All systems reviewed & no additional complaints except as documented Physical Exam General General appearance: alert and in no apparent distress Head Head exam: atraumatic and normal inspection Eye Eye exam: Present normal appearance and EOMI ENT ENT exam: Present normal exam and normal oropharynx Neck Neck exam: Present normal inspection and full ROM Chest Chest inspection: Present normal inspection and symmetric chest wall rise Respiratory Respiratory exam: Present normal lung sounds bilaterally Cardiovascular Cardiovascular exam: Present regular rate and normal heart s
== END 2022-05-23 20:07 | disposition home or self-care (01) ==
PROVIDERS: Emergency Provider Student in an Organized Health Care Education/Training Program; PCP Family Medicine
DX: O90.89 Other complications of the puerperium, not elsewhere classified (principal); M79.89 Other specified soft tissue disorders
CPT/HCPCS: 96372; 99283

== ENCOUNTER 2023-05-22 22:07 | Emergency (ER) | payer OTHER, SELFPAY ==
[2023-05-22 22:07] VITALS: BP 121/89; PULSE 114; RESP 16; TEMP 36.6; O2SAT 99; BMI 38.9
[2023-05-22 22:55] LABS: Influenza A, PCR Not Detected (NotDetected); Influenza B, PCR Not Detected (NotDetected)
--- NOTE | 2023-05-22 23:01 | HMH.EDGENADL ---
Discharge Plan Disposition Patient Disposition: Home, Self-Care Prescriptions Prescriptions: No Action amoxicillin-pot clavulanate [Augmentin XR] 1,000-62.5 mg tablet extended release 12 hr 1 tab PO BID Qty: 14 0RF levonorgestrel-ethinyl estrad [Aviane] 0.1-20 mg-mcg tablet 1 tab PO TID 7 Days Qty: 84 3RF Rx Instructions: Take three times a day for 7 days followed by daily thereafter ondansetron 4 mg tablet,disintegrating 4 mg PO Q6H PRN (Reason: nausea and vomiting) Qty: 30 0RF Referrals Follow up/Referrals: Fang Hartmann MD [Primary Care Provider] - See instructions Activity Restrictions/Add. Instructions Additional Instructions/Restrictions: Supportive care treating symptoms as discussed. Return with any respiratory distress or other concerns. Clinical Impressions Clinical Impression: URI (upper respiratory infection) Stand Alone Forms Stand Alone Forms: Work/School Release Discharge ED Provider: Theo Dickinson General Adult HPI General Chief complaint: Upper Respiratory Infection Stated complaint: exposed to covid-cough, sore throat Time Seen by Provider: 05/22/23 22:25 Mode of Arrival: Ambulatory Source of Information: Patient Limitations: No Limitations Description of Symptoms (Recalled from ER Triage Doc. by RN): Presents to ED with c/o sore throat and cough since this morning. 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 Patient reports she was exposed to COVID yesterday. 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 She was exposed to a family member with COVID-19 recently and is concerned about that. She only complains of sore throat notes significant symptoms. Children have rhinorrhea cough and her youngest has a fever. Related Data Previous Rx's Medication Instructions Recorded amoxicillin-potassium clavulanate 1 tab PO BID #14 tabs 01/18/23 1,000 mg-62.5 mg tablet,ext.rel 12hr (Augmentin XR) levonorgestrel-ethinyl estradiol 1 tab PO TID 7 days #84 tabs 04/07/23 0.1 mg-20 mcg tablet (Aviane) ondansetron 4 mg disintegrating 4 mg PO Q6H PRN nausea and 04/07/23 tablet vomiting #30 tabs Allergies Allergy/AdvReac Type Severity Reaction Status Date / Time No Known Allergies Allergy Verified 01/18/23 14:37 [facility] Disclaimer: The information contained in this section may have been updated after the patient was seen, as this information can be updated by other users. Surgical History History of D&C Family History Mother Diabetes Father Hypertension Social History Smoking Status: Current every day smoker tobacco type: e-cigarettes alcohol intake: never substance use type: denies use current occupational status: employed Travel in the last 8 weeks: None household members: other housing: other ROS Obtained: Yes All systems reviewed & no additional complaints except as documented Physical Exam General General appearance: alert ENT ENT exam: Present normal oropharynx (No exudates ulcers no significant or pathologic erythema soft tissue swelling etc.) Respiratory Respiratory exam: Present normal lung sounds bilaterally; Absent respiratory distress, wheezes or stridor Cardiovascular Cardiovascular exam: Present regular rate; Absent tachycardia Neurological Exam Neurological exam: Present alert and oriented X3 Medical Decision Making Julio Inquiry Pt receiving controlled substance: No Vital Signs: 05/22/23 22:07 05/22/23 23:02 Temperature 97.9 F 97.9 F Temperature Source Oral Oral Pulse Rate 114 H Pulse Rate [Right] 114 H Respiratory Rate 16 16 Blood Pressure 121/89 Blood Pressure [Right
[2023-05-22 23:02] VITALS: BP 121/89; PULSE 114; RESP 16; TEMP 36.6; O2SAT 99
[2023-05-22 23:17] LABS: Coronavirus 19, PCR Detected (NotDetected)
== END 2023-05-22 23:10 | disposition home or self-care (01) ==
PROVIDERS: Emergency Provider Student in an Organized Health Care Education/Training Program; PCP Family Medicine
DX: J06.9 Acute upper respiratory infection, unspecified (principal); R05.9 Cough, unspecified; J02.9 Acute pharyngitis, unspecified; F17.290 Nicotine dependence, other tobacco product, uncomplicated
CPT/HCPCS: 87636; 99283

== ENCOUNTER 2023-10-24 11:26 | Outpatient (CLI) | payer OTHER, SELFPAY ==
[2023-10-24 12:13] LABS: Basophils # 0.1 K/mm3 (0-0.2); Basophils % 0.8 % (0.1-2.0); Eosinophils # 0.1 K/mm3 (0.0-0.4); Eosinophils % 1.6 % (0.1-12.0); Hematocrit 44.2 % (37.0-47.0); Hemoglobin 14.3 g/dL (12.2-16.2); Lymphocytes # 1.7 K/mm3 (0.7-4.5); Lymphocytes % 21.7 % (10-50); Mean Corpuscular HGB Conc 32.4 g/dL (31.8-35.4); Mean Corpuscular Hemoglobin 26.6 pg (27.0-31.2); Mean Platelet Volume 9.1 fl (7.4-10.4); Monocytes # 0.4 K/mm3 (0.1-1.0); Monocytes % 4.6 % (1.7-9.3); Neutrophils # 5.6 K/mm3 (1.8-7.8); Neutrophils % 71.4 % (37.0-80.0); Platelet Count 282 K/mm3 (142-424); Red Blood Count 5.39 M/mm3 (4.20-5.40); White Blood Count 7.9 K/mm3 (4.8-10.8)
[2023-10-24 12:38] LABS: Chloride 106 mmol/L (98-107)
[2023-10-24 12:39] LABS: Sodium 137 mmol/L (136-145)
[2023-10-24 12:41] LABS: Alanine Aminotransferase 18 U/L (12-78); Aspartate Amino Transferase 33 U/L (14-36); Blood Urea Nitrogen 16 mg/dl (7-17); Estimated Glomerular Filt Rate 120 ml/min (>60); GFR (African American) 145 ML/MIN (>60)
[2023-10-24 12:42] LABS: Albumin Level 4.1 g/dl (3.5-5.0); Albumin/Globulin Ratio 1.4 (1.1-1.8); Alkaline Phosphatase 102 U/L (38-126); Bilirubin,Total 0.7 mg/dl (0.2-1.3); Calcium 9.2 mg/dl (8.4-10.2); Carbon Dioxide 24 mmol/L (22.0-30.0); Globulin 2.9 g/dL (1.3-3.2); Glucose 101 mg/dl (74-100)
[2023-10-24 13:02] LABS: HCG,Quantitative < 2 mIU/ml (0-5.42)
== END 2023-10-24 23:59 | disposition home or self-care (01) ==
LOC: LAB 11:28
PROVIDERS: PCP Nurse Practitioner Family; Visit Provider Nurse Practitioner Obstetrics & Gynecology
DX: Z30.09 Encounter for other general counseling and advice on contraception (principal)
CPT/HCPCS: 36415; 80053; 84702; 85025

== ENCOUNTER 2023-10-30 06:07 | Day surgery (SDC) | payer OTHER, SELFPAY ==
[2023-10-30] VITALS (11 sets, daily range): BP systolic 107–152; BP diastolic 70–93; PULSE 71–100; RESP 14–18; TEMP 36.3–43; O2SAT 92–98; BMI 38.7
[2023-10-30] MEDS: LACTATED RINGERS 1000ML 1,000 ML 25 ML IV (06:34)
--- NOTE | 2023-10-30 06:55 | EXP.ANES.CKL ---
[facility] Disclaimer: The information contained in this section may have been updated after the patient was seen, as this information can be updated by other users. Medical History Abnormal cervical Papanicolaou smear Surgical History History of D&C Family History Mother Diabetes Father Hypertension Social History (Updated 10/30/23 @ 06:22 by Obdulia Delong RN) Smoking Status: Current every day smoker tobacco type: e-cigarettes alcohol intake: never substance use type: denies use current occupational status: employed Travel in the last 8 weeks: None household members: other housing: other [facility] Anesthesia Checklist Patient Identification Patient Identification: Arm Band and Family Structural Data Admitted From: Home Planned Operative Procedure/s: Bilateral Salpingectomy Consent for Planned Operative Procedure(s) Verified: Yes Verified Documents: Surgical Consent NPO Status Verified Time NPO: 00:00 Additional verifications Patient : No Anesthesia Reactions: No Hx Blood Transfusions: No Blood Transfusion Reaction: No Cephalosporin Allergy: No Previous Colonoscopy: No Airway Assessment Mallampati Score:: Class I C-Spine Mobility Assessed: Yes TMJ Mobility Assessed: Yes Dentition: Good Dentition Neurological Assessment Level of Consciousness: Awake, Alert, Appropriate and Follows Commands Numbness or tingling in extremities: No Anesthesia Plan ASA Class: I Anesthesia Type: General
[2023-10-30] MEDS: CEFAZOLIN 2GM VIAL 2 GM (07:43)
[2023-10-30] MEDS: ROPIVACAINE 0.5% 30ML VIAL 300 MG (07:43)
--- NOTE | 2023-10-30 08:07 | EXP.OP.NOTE ---
Date of procedure: 10/30/23 Pre-op Diagnosis:: Desire for sterilization Post-op Diagnosis:: Desire for sterilization Procedure performed:: Laparoscopic bilateral salpingectomy the Surgeon:: Denis Miranda MD [employer]ELOPER:: [place] Anesthesia: GETA Estimated blood loss (mL): 10 Clinical Note:: She is a 28-year-old lady who expressed desire for sterilization. The risks and benefits as well as the irreversibility of bilateral salpingectomy were discussed with the patient prior to surgery. Operative findings:: She had a normal-appearing somewhat bulky uterus. The tubes were seen and appeared normal. The ovaries were seen and appeared normal. The appendix was visualized and appeared normal. The upper abdomen appeared normal as did the entire pelvis. Operative note:: She was taken to the operating room where general anesthesia was found be adequate. She was prepped and draped in normal sterile fashion in the semilithotomy position. A weighted speculum was placed in the vagina and the anterior lip of the cervix was grasped with a tenaculum. I then inserted a Kerri uterine manipulator into the cervical os. The balloon was then insufflated. I changed gloves and injected 10 cc of 0.5% ropivacaine around her umbilicus and made a small incision within the umbilicus. I inserted a Veress needle into the abdominal cavity. The peritoneal cavity was then insufflated with carbon dioxide gas to a pressure of 20 mmHg. I then inserted a 5 millimeter trocar under direct vision. I injected through and through the pubic hairline, made a small incision here and inserted an 8 mm trocar under direct vision. I identified the inferior epigastric artery on the left side, went lateral to these and injected through and through. I then placed a 5 mm trocar here under direct vision. The pelvis and upper abdomen were then inspected and the findings were as previously dictated. I grasped the right tube at the cornua and using harmonic scalpel on coagulation mode I cut through the tube. I then grasped the distal tube and using harmonic scalpel cut along the mesosalpinx. The tube was removed through 8 mm trocar site. This was similarly performed on the patient's left side. I then injected 30 cc of 0.5% ropivacaine into the pelvis. After assuring hemostasis the gas was let out of the abdomen and hemostasis was once again assured. The abdomen was then reinsufflated. The secondary trochars were removed under direct vision. The gas was let out her abdomen. The primary trocar was then removed. The 8 mm trocar site was closed deeply with 2-0 Vicryl suture followed by subcuticular 4-0 Monocryl suture. The 5 mm trocar sites were closed with subcuticular 4-0 Monocryl. Sterile dressings were applied. The patient tolerated the procedure well and was taken to the recovery room in excellent condition. All sponge instrument and needle counts were correct. The estimated blood loss was less than 10 cc. Condition: stable Disposition: PACU Specimens:: Bilateral fallopian tubes Complications:: None
--- NOTE | 2023-10-30 08:18 | P.PNANES_ITS ---
[facility] Anesthesia Record Part I Anesthesia Record I Intake, IV Amount: 650 Hydration: Adequate Estimated blood loss (mL): 9 Urine output (mL): 0 Blood Products used (#): none Blood Pressure: 128/90 SaO2: 93 Pulse Rate: 76 Airway Patency: Patent Respiratory Rate: 14 Temperature: 97.6 F Patient is:: Drowsy and Stable Stable to PACU at:: 08:11
--- NOTE | 2023-10-30 11:02 | P.PNANES_ITS ---
[facility] Anesthesia Record Part II Anesthesia Record Part II Discharge Time: 08:41 Destination: Surgical Day Care (OP Surgery) PACU nurse assessment reviewed?: Yes Patient Condition:: Good Anesthesia Complications:: None Swallowing reflex intact?: Yes Airway Patency: Patent Cyanosis?: No Blood Pressure: 150/88 SaO2: 95 Respiratory Rate: 18 Pulse Rate: 71 Temperature: 98 F Mental Status: Alert & Oriented Pain level:: 0 Nausea and/or vomitting:: None Intake, IV Amount: 0 Hydration: Adequate
== END 2023-10-30 09:33 | disposition home or self-care (01) ==
PROVIDERS: PCP Family Medicine; Visit Provider Nurse Practitioner Obstetrics & Gynecology
PROC: (CPT 58661; principal; 2023-10-30 07:30)
DX: Z30.2 Encounter for sterilization (principal)
CPT/HCPCS: 58661; 96374; J3490; J0690; J2405

== ENCOUNTER 2023-12-13 10:55 | Emergency (ER) | payer OTHER, SELFPAY ==
[2023-12-13 11:01] VITALS: BP 115/77; PULSE 86; O2SAT 97
[2023-12-13 11:03] VITALS: BP 115/77; PULSE 88; RESP 20; TEMP 36.8; O2SAT 97; BMI 40.0
--- NOTE | 2023-12-13 11:24 | PC.NURSE ---
DR RUFFIN AT BEDSIDE
--- NOTE | 2023-12-13 11:25 | XR_ITS ---
FINAL REPORT CLINICAL HISTORY: foot inversion injury FINDINGS: Three views show no evidence of acute displaced fracture or dislocation of the visualized bony architecture. The joint spaces appear normal. IMPRESSION: Unremarkable exam. Reviewed, Interpreted and Dictated by Karrie Carver MD Transcribed by Vee Velazquez Authenticated and [facility]
--- NOTE | 2023-12-13 11:25 | XR_ITS ---
FINAL REPORT CLINICAL HISTORY: foot inversion injury FINDINGS: Three views show no evidence of acute displaced fracture or dislocation of the visualized bony architecture. The joint spaces appear normal. IMPRESSION: Unremarkable exam. Reviewed, Interpreted and Dictated by Karrie Carver MD Transcribed by Vee Velazquez Authenticated and [facility]
--- NOTE | 2023-12-13 11:26 | ED_ITS ---
Discharge Plan Disposition Patient Disposition: Home, Self-Care Referrals Follow up/Referrals: Fang Hartmann MD [Primary Care Provider] - See instructions Alistair Shah DO [Staff Physician] - See instructions Activity Restrictions/Add. Instructions Additional Instructions/Restrictions: Please bear weight as you can tolerate as discussed utilizing your boot and crutches. Use ice rest elevation when you are not in the boot. If you are not having a trajectory of improvement in 1 to 2 weeks please follow-up with orthopedic surgery to be considered for an outpatient MRI. Clinical Impressions Clinical Impression: Foot sprain, Ankle sprain Discharge ED Provider: Theo Dickinson General Adult HPI General Chief complaint: PAIN Stated complaint: [id number]- fall, pain and swelling in R foot Time Seen by Provider: 12/13/23 11:23 Mode of Arrival: Wheelchair Source of Information: Patient Limitations: No Limitations Description of Symptoms (Recalled from ER Triage Doc. by RN): pt to ed c/o right foot pain. pt states she missed her porch step and fell onto her right foot. pt reports throbbing pain. knot noted to the right lateral part of foot. History of Present Illness HPI narrative: Patient is a 28-year-old female presents today with right foot and ankle pain after a fall. She states she had a mechanical fall off of her steps had an inversion injury has had increasing pain and swelling since that time. Has been able to bear weight but with significant pain. Has not taken any medications no injuries elsewhere. Related Data Allergies Allergy/AdvReac Type Severity Reaction Status Date / Time No Known Allergies Allergy Verified 11/14/23 15:09 [facility] Disclaimer: The information contained in this section may have been updated after the patient was seen, as this information can be updated by other users. Medical History Abnormal cervical Papanicolaou smear Surgical History History of D&C Family History Mother Diabetes Father Hypertension Social History Smoking Status: Current every day smoker tobacco type: e-cigarettes alcohol intake: never substance use type: denies use current occupational status: employed Travel in the last 8 weeks: None household members: other housing: other ROS Obtained: Yes All systems reviewed & no additional complaints except as documented Physical Exam General General appearance: alert and in no apparent distress Respiratory Respiratory exam: Present normal lung sounds bilaterally Cardiovascular Cardiovascular exam: Present regular rate and normal rhythm Extremities Exam Extremities exam: Present other (Tenderness palpation with distal compression of tib-fib as well as pain in the right lateral malleolus and midfoot there is some swelling in lateral midfoot at the base of the fifth metatarsal) Neurological Exam Neurological exam: Present alert and oriented X3 Medical Decision Making Julio Inquiry Pt receiving controlled substance: No Vital Signs: 12/13/23 11:01 12/13/23 11:03 12/13/23 11:37 Temperature 98.2 F Temperature Source Oral Pulse Rate 86 85 Pulse Rate [Left Radial] 88 Respiratory Rate 20 Blood Pressure 115/77 125/82 Blood Pressure [Right Arm] 115/77 Blood Pressure Mean [Right Arm] 89 02 Sat by Pulse Oximetry 97 97 100 Oxygen Delivery Method Room Air Room Air Room Air 12/13/23 12:00 Temperature Temperature Source Pulse Rate 81 Pulse Rate [Left Radial] Respiratory Rate Blood Pressure 116/72 Blood Pressure [Right Arm] Blood Pressure Mean [Right Arm] 02 Sat by Pulse Oximetry 99 Oxygen Delivery Method Room Air Orders (Tests/Meds): ED MEDICATIONS Discontinued Medications Generic Name Dose Route Start Last Admin Trade Name Freq PRN Reason Stop Dose Admin Acetaminophen 1,000 mg 12/13/23 11:25 12/13/23 11:56 Acetaminophen 500mg Tab PO 12/13/23 11:26 1,000 mg ONCE ONE Administration Ibuprofen 800 mg 12/13/23 11:25 12/13/23 11:56 Ibuprofen 400 Mg Tablet PO 12/13/23 11:26 800 mg ONCE ONE Administration ORDERS Category Date Time Status Ankle XR -Right minimum 3 Views [XR ankle RT min 3V] Exams 12/13/23 11:25 Taken Stat Foot XR right minimum 3 views [XR foot RT min 3V] Stat Exams 12/13/23 11:25 Taken Medical Decision Narrative: 28-year-old female with above history differential includes fracture dislocation sprain. Will get plain films and reassess X-rays performed which I first interpreted which show no fractures or dislocation patient having significant pain with ambulation we will place her in a boot and crutches she has been allowed to bear weight as tolerated will follow-up with orthopedic surgery in 1 to 2-week if she is not having a trajectory of improvement. Working diagnosis is foot and ankle sprain. She was discharged in stable condition with supportive instructions advised. Critical Care Critical Care Time Critical Care Time: No
[2023-12-13 11:37] VITALS: BP 125/82; PULSE 85; O2SAT 100
[2023-12-13] MEDS: ACETAMINOPHEN 500MG TAB 1000 MG PO (11:56)
[2023-12-13] MEDS: IBUPROFEN 400 MG TABLET 800 MG PO (11:56)
[2023-12-13 12:00] VITALS: BP 116/72; PULSE 81; O2SAT 99
--- NOTE | 2023-12-13 12:00 | PC.NURSE ---
RAD at BS
--- NOTE | 2023-12-13 12:00 | PC.NURSE ---
XR AT BEDSIDE
--- NOTE | 2023-12-13 12:07 | PC.NURSE ---
Rounded on pt. No needs voiced at this time. call light within reach.
--- NOTE | 2023-12-13 12:09 | PC.NURSE ---
dr leonard at bedside
[2023-12-13 12:19] VITALS: BP 116/72; PULSE 83; RESP 18; TEMP 36.8; O2SAT 98
--- NOTE | 2023-12-13 12:30 | PC.NURSE ---
Pt returned from RAD
== END 2023-12-13 12:20 | disposition home or self-care (01) ==
PROVIDERS: Emergency Provider Student in an Organized Health Care Education/Training Program; PCP Family Medicine
DX: S93.401A Sprain of unspecified ligament of right ankle, initial encounter (principal); S93.601A Unspecified sprain of right foot, initial encounter; M25.571 Pain in right ankle and joints of right foot; F17.290 Nicotine dependence, other tobacco product, uncomplicated; W10.8XXA Fall (on) (from) other stairs and steps, initial encounter
CPT/HCPCS: 73610; 73630; 99283